=== PATIENT | female | born 1965 | race Caucasian/White ===

== ENCOUNTER 2016-09-16 03:00 | Emergency (ER) | payer BC ==
--- NOTE | 2016-09-16 03:02 | PDOC ---
History of Present Illness - General Chief Complaint: Lightheaded Stated Complaint: NAUSEA/DIZZY Time Seen by Provider: 09/16/16 03:01 - History of Present Illness Initial Comments: This 50-year-old woman with a history of Crohn's disease and breast cancer presents with awakening with lightheadedness/nausea/vomiting about an hour prior to presentation. Patient had taken 1 Vicodin tablet at approximately 11: 30 PM for chronic chest pain related to her breast surgery (procedure approximately one year ago). She awakened a few hours later with symptoms. She denies room spinning but describes a dysphoric "dizzy" sensation. The Vicodin had been described for the original procedure and had last month. Of note, the patient has had low-grade fever, cough productive for the last several days . She was seen by her PMD, Dr. Cramer in the office earlier this week. Treatment was supportive and fever has resolved. She still has mild cough. This recent illness did not include any nausea/vomiting/diarrhea. When patient was seen by her quality control industrial engineer 2 weeks ago, he noted "a large amount of bacteria" in her urinalysis. Her quality control industrial engineer thought this was related to lab or and no repeat has been performed. Currently, patient has no dysuria/ urinary frequency/hematuria Patient and has been return from cruise to the [facility] one week ago Past History - Past Medical History Allergies/Adverse Reactions: Allergies Allergy/AdvReac Type Severity Reaction Status Date / Time clindamycin Allergy Verified 05/17/15 09:16 Home Medications: Ambulatory Orders Mercaptopurine [Purinethol] 25 mg PO Q48H 04/20/11 Mesalamine [Lialda] 1.2 gm PO DAILY 04/20/11 Cetirizine HCl [Zyrtec] 10 mg PO HS 10/07/12 Cholecalciferol (Vitamin D3) [Vitamin D] 2,000 unit PO DAILY 10/07/12 Lactobacillus Rhamnosus GG [Probiotic] 1 each PO DAILY 10/07/12 Magnesium 500 mg PO HS 10/07/12 Multivitamin [Daily Vitamin Formula] 1 each PO DAILY tablet 05/17/15 Vitamin K2 40 mcg PO DAILY 05/17/15 [place]-3 Fatty Acids/Fish Oil [Fish Oil 1,000 Mg Capsule] 1 each PO DAILY capsule 04/19/16 Tumeric DAILY 01/04/17 Ubidecarenone/Vit E Acetate [Co Q-10 100 Mg Softgel] 1 each PO DAILY capsule Anemia: Yes (TOOK IRON SUPP A CHILD) Asthma: No Cancer: No Cardiac Disorders: No CVA: No COPD: No CHF: No Dementia: No Diabetes: No GI Disorders: Yes (CHRON'S) Disorders: No HTN: No Hypercholesterolemia: No Liver Disease: No Seizures: No Thyroid Disease: No - Surgical History Abdominal Surgery: No Appendectomy: No Cardiac Surgery: No Cholecystectomy: No Lung Surgery: No Neurologic Surgery: No Orthopedic Surgery: Yes - Psycho/Social/Smoking Cessation Hx Suicidal Ideation: No Smoking Status: No Smoking History: Never smoked Have you smoked in the past 12 months: No Number of Cigarettes Smoked Daily: 0 Hx Alcohol Use: Yes (WINE WITH DINNER) Drug/Substance Use Hx: No Substance Use Type: Alcohol Hx Substance Use Treatment: No Review of Systems - Review of Systems Able to Perform ROS?: Yes Comments:: 12 point review of systems is negative except for what is noted in the history of present illness *Physical Exam - Physical Exam Comments: GENERAL: Adult female, alert and oriented 3, in no acute distress HEAD: Normal with no signs of trauma. EYES: PERRLA, EOMI, sclera anicteric, conjunctiva clear. ENT: Ears normal, nares patent, oropharynx clear without exudates. Dry mucous membranes. NECK: Normal range of motion, supple without lymphadenopathy, JVD, or masses. LUNGS: Breath sounds equal, clear to auscultation bilaterally. No wheezes, and no crackles. HEART:Regular rate and rhythm, normal S1 and S2 without murmur, rub or gallop. ABDOMEN:.normal bowel sounds No guarding,tenderness or rebound.No masses No distention. EXTREMITIES: Normal range of motion, no edema. No clubbing or cyanosis. No erythema, or tenderness. NEUROLOGICAL: Cranial nerves II through XII grossly intact with pupils 3 mm, briskly reactive and equal . No abnormal nystagmus seen.. Speech / gait are normal. Moving all 4 extremities equally, without pronator drift. MUSCULOSKELETAL: Back non-tender to palpation, no CVA tenderness SKIN: Warm, Dry, normal turgor, no rashes or lesions noted. Medical Decision Making - Medical Decision Making This 50-year-old woman presents with lightheadedness/nausea a few hours after taking an outdated Vicodin tablet. No symptoms consistent with acute neurologic event. As noted above, patient's mucous membranes are somewhat dry but neurologic exam is normal without evidence of deficit. Because of the patient's history of abnormal urinalysis, had given prescription to the patient for repeat urinalysis. Urinalysis and urine culture and sensitivity will be sent tonight. Patient vomited water that she had consumed earlier in the visit but felt immediately better after this with resolution of her presenting symptoms. Patient was observed for additional 10 minutes. During this time, patient is continued to feel well and wanted to be discharged. No new symptoms occurred and patient was discharged with instructions to rest and avoid strenuous activity for the next day. She and her will make arrangements to discard the outdated Vicodin through the police department here at [place]. She will return to the emergency room if she has worsening symptoms. *DC/Admit/Observation/Transfer Diagnosis at time of Disposition: Medication side effect Qualifiers: Encounter type: initial encounter Qualified Code(s): T88.7XXA - Unspecified adverse effect of drug or medicament, initial encounter - Discharge Dispostion Disposition: HOME Condition at time of disposition: Stable - Referrals Referrals: Stewart Cramer MD [Primary Care Provider] - - Patient Instructions Additional Instructions: drink plenty of fluids rest;avoid strenuous activity tomorrow dispose of outdated Vicodin(call police dept[[phone]] regarding medication takeback) return to ER if lightheadedness is persistent or severe followup with Dr Cramer within 3-4 days
[2016-09-16 03:11] VITALS: BP 114/71; PULSE 73; TEMP 97.5; BMI 20.7
[2016-09-16 09:34] LABS: URINE APPEARANCE Clear; URINE BILIRUBIN Negative (NEGATIVE); URINE GLUCOSE (UA) Negative (NEGATIVE); URINE KETONE Negative (NEGATIVE); URINE LEUK ESTERASE Negative (NEGATIVE); URINE NITRITE Negative (NEGATIVE); URINE PROTEIN Trace (NEGATIVE); URINE UROBILINOGEN 0.2 E.U/dl (0.2-1.0)
[2016-09-16 09:38] LABS: URINE BLOOD 1+ (NEGATIVE); URINE COLOR AMBER
== END 2016-09-16 04:23 | disposition home or self-care (01) ==
LOC: FER 03:00
DX: T88.7XXA Unspecified adverse effect of drug or medicament, initial encounter (principal); X58.XXXA Exposure to other specified factors, initial encounter; Y93.9 Activity, unspecified; K50.90 Crohn's disease, unspecified, without complications
CPT/HCPCS: 81003; 87086; 99282-25

== ENCOUNTER 2021-07-28 13:53 | Day surgery (SDC) | payer BC ==
[2021-07-28 08:41] VITALS: BMI 20.9
[2021-07-28] MEDS ORDERED: ceFAZolin SODIUM 1 GM VIAL ONE (15:25)
[2021-07-28] MEDS ORDERED: LIDOCAINE HCL/PF 2% SDV 5ML VIAL ONE (15:25)
[2021-07-28] MEDS ORDERED: MIDAZOLAM HCL 2 MG/2 ML SINGLE DOSE VIAL ONE (15:26)
[2021-07-28] MEDS ORDERED: PROPOFOL 20 ML ONE (15:26)
[2021-07-28] MEDS ORDERED: DEXAMETHASONE SOD PHOSPHATE 4 MG/1 ML VIAL ONE (16:00)
[2021-07-28] MEDS ORDERED: ONDANSETRON 4 MG/2 ML VIAL ONE (16:00)
[2021-07-28] MEDS ORDERED: BUPIVACAINE HCL/PF 0.25% (2.5MG/ML) 10 ML VIAL ONE (16:12)
[2021-07-28] MEDS ORDERED: oxyCODONE HCL 5 MG TABLET PO PRN ×2 (17:27)
[2021-07-28] MEDS ORDERED: ONDANSETRON 4 MG/2 ML VIAL IVPUSH PRN (17:27)
[2021-07-28] MEDS ORDERED: LACTATED RINGERS SOLUTION 1,000 ML IV SCH (17:30)
[2021-07-28 18:27] VITALS: TEMP 98
[2021-07-28 18:43] VITALS: BP 135/75; PULSE 80
== END 2021-07-28 19:51 | disposition home or self-care (01) ==
LOC: FASU 13:53
PROVIDERS: ATTEND Orthopaedic Surgery Sports Medicine
PROC: 0QSP04Z Reposition Left Metatarsal with Internal Fixation Device, Open Approach (ICD-10-PCS; principal; 2021-07-28 15:59)
DX: S92.352A Displaced fracture of fifth metatarsal bone, left foot, initial encounter for closed fracture (principal); X58.XXXA Exposure to other specified factors, initial encounter; Y93.9 Activity, unspecified; Y92.9 Unspecified place or not applicable
CPT/HCPCS: 94760